=== PATIENT | female | born 1985 | race African-American/Black ===

== ENCOUNTER 2016-12-04 19:16 | Emergency (ER) | payer OTHER ==
[2016-12-04] MEDS ORDERED: Bupivacaine 0.5% 10 ML VIAL ONE (19:43)
[2016-12-04] MEDS ORDERED: Ondansetron HCl/PF 4 MG/2 ML Vial ONE (19:48)
[2016-12-04] MEDS ORDERED: Adacel (T-DAP) 0.5 ML VIAL ONE (19:48)
[2016-12-04] MEDS ORDERED: Sulfameth/Trimethoprim DS 800-160mg TAB ONE (20:41)
[2016-12-04] MEDS ORDERED: Ibuprofen 200 MG TAB ONE (20:41)
[2016-12-04] MEDS ORDERED: traMADol HCl 50 MG TAB ONE (20:41)
== END 2016-12-04 21:03 | disposition home or self-care (01) ==
LOC: NAV ERS 19:16
DX: L02.411 Cutaneous abscess of right axilla (principal)
CPT/HCPCS: 10060; 90471; 90715; 96374; 96375; J2270; J2405; J3490

== ENCOUNTER → 2016-12-06 | Emergency (ER) | payer OTHER | LOC: NAV ERS 17:42 | DX: Z48.817 Encounter for surgical aftercare following surgery on the skin and subcutaneous tissue (principal); Z48.01 Encounter for change or removal of surgical wound dressing | CPT/HCPCS: 99282 ==

== ENCOUNTER 2016-12-08 14:05 | Emergency (ER) | payer OTHER | END 2016-12-08 14:30 | disposition home or self-care (01) | LOC: NAV ERS 14:05 | DX: Z48.817 Encounter for surgical aftercare following surgery on the skin and subcutaneous tissue (principal); Z48.01 Encounter for change or removal of surgical wound dressing | CPT/HCPCS: 99282 ==

== ENCOUNTER 2021-12-20 23:03 | Emergency (ER) | payer BC, OTHER ==
[2021-12-20] MEDS ORDERED: Lidocaine 1% 20 ML MDV ONE (23:24)
[2021-12-20] MEDS ORDERED: Sulfameth/Trimethoprim DS 800-160mg TAB ONE (23:51)
== END 2021-12-20 23:58 | disposition home or self-care (01) ==
LOC: NAV ERS 23:03
DX: L02.11 Cutaneous abscess of neck (principal)
CPT/HCPCS: 10060; 87070; 87205

== ENCOUNTER 2021-12-22 16:10 | Emergency (ER) | payer BC ==
[2021-12-22] MEDS ORDERED: Bacitracin 1 PK ONE (16:25)
== END 2021-12-22 16:38 | disposition home or self-care (01) ==
LOC: NAV ERS 16:10
DX: Z48.817 Encounter for surgical aftercare following surgery on the skin and subcutaneous tissue (principal)
CPT/HCPCS: 99282

== ENCOUNTER 2022-04-14 00:08 | Emergency (ER) | payer BC, OTHER, SELFPAY ==
[2022-04-14] MEDS ORDERED: Naproxen 500 MG TAB ONE (00:56)
[2022-04-14] MEDS ORDERED: Lisinopril 5 MG TAB ONE (00:56)
== END 2022-04-14 01:10 | disposition home or self-care (01) ==
LOC: NAV ERS 00:08
DX: I10 Essential (primary) hypertension (principal)
CPT/HCPCS: 99283